=== PATIENT | female | born 1980 | race Caucasian/White ===

== ENCOUNTER 2016-08-18 17:04 | Emergency (ER) | payer MEDICAID, OTHER ==
[~2016-08-18] VITALS: Ht 157.5 cm; Wt 95.4 kg
[2016-08-18 17:07] VITALS: Ht 157.5 cm; Wt 95.4 kg
--- NOTE | 2016-08-18 18:03 | RADRPT ---
PROCEDURE: OBSTETRICAL ULTRASOUND WITH ENDOVAGINAL IMAGES CLINICAL INDICATION: Vaginal Bleed () TECHNIQUE: Multiple sonographic images of the pelvis were obtained utilizing a transabdominal and endovaginal technique. The images were reviewed on a PACS workstation. COMPARISON: None. LMP: 06/01/2016 FINDINGS: The uterus measures 11.3 x 6.0 x 6.5 cm. There is thickening of the endometrium to 12 mm without evidence of an intrauterine or foc al vascularity to suggest retained products of conception. The right ovary measures 2.6 x 1.2 x 2.3 cm. The left ovary measures 3.0 x 2.0 x 2.3 cm. There is no rmal vascular flow in both ovaries. A poorly circumscribed isoechoic lesion with prominent peripher al vascular flow and some internal vascular flow is noted in the left ovary measuring up to 1.4 cm w hich is nonspecific. No significant pelvic free fluid is identified. IMPRESSION: Thickening of the endometrium to 12 mm without evidence of an intrauterine or retained pro ducts of conception. Moreover, there is a poorly circumscribed cystic lesion with peripheral and in ternal vascular flow in the left ovary measuring up to 1.4 cm which is suspicious for an ectopic pre gnancy or, less likely, a hemorrhagic/corpus luteal cyst. Alternatively, findings may be due to an e pete intrauterine . Short-term follow-up ultrasound and serial Beta HCG measurements are r ecommended for further evaluation. These findings were discussed with Dr. SHANNAN Morataya over the phone on 08/18/2016 at 6:01 PM . RPTAT: EE Jw [facility] Physician Date Time Electronically viewed and signed by Jw [facility] Physician on 08/18/2016 18:03 /
[2016-08-18 18:14] LABS: ADD SCAN DIFF NO
[2016-08-18 18:19] LABS: ADD UMIC YES; URINE BILIRUBIN (Dip) NEGATIVE (NEGATIVE); URINE BLOOD (Dip) 3+ (NEGATIVE); URINE COLOR LT. RED (YELLOW); URINE GLUCOSE (Dip) NEGATIVE (NEGATIVE); URINE KETONES (Dip) NEGATIVE (NEGATIVE); URINE LEUKOCYTE ESTERASE (Dip) NEGATIVE (NEGATIVE); URINE NITRITE (Dip) NEGATIVE (NEGATIVE); URINE TOTAL PROTEIN (Dip) TRACE (NEGATIVE); URINE UROBILINOGEN (Dip) 0.2 E.U./dL (0.1-1.0)
[2016-08-18 18:21] LABS: BASOPHIL # 0.1 10^3/ul (0.0-0.1); BASOPHILS % 0.7 % (0.0-2.0); EOSINOPHILS # 0.2 10^3/ul (0.0-0.5); EOSINOPHILS % 1.4 % (0.0-7.0); HEMATOCRIT 40.9 % (37.0-47.0); HEMOGLOBIN 13.6 g/dl (12.0-16.0); LYMPHOCYTES # 3.1 10^3/ul (0.8-2.9); LYMPHOCYTES % 25.2 % (15.0-51.0); MEAN CORPUSCULAR HEMOGLOBIN 30.7 pg (29.0-33.0); MEAN CORPUSCULAR HGB CONC 33.3 g/dl (32.0-37.0); MEAN CORPUSCULAR VOLUME 92.3 fl (82.0-101.0); MONOCYTE # 0.6 10^3/ul (0.3-0.9); MONOCYTES % 4.8 % (0.0-11.0); NEUTROPHIL # 8.2 10^3/ul (1.6-7.5); NEUTROPHILS % 67.6 % (39.0-77.0); PLATELET COUNT 307 10^3/UL (140-415); RED BLOOD COUNT 4.43 10^6/ul (4.20-5.40); RED CELL DISTRIBUTION WIDTH 12.9 % (11.5-14.5); WHITE BLOOD COUNT 12.2 10^3/ul (4.8-10.8)
[2016-08-18 18:45] LABS: BACTERIA,URINE MODERATE; URINE RBCS >200 /HPF (0)
[2016-08-18] MEDS ORDERED: ACET500C5 PO (19:08)
--- NOTE | 2016-08-18 19:18 | ERD ---
ER Documentation Chief Complaint Date/Time DATE: 08/18/16 TIME: 19:10 Chief Complaint from clinic, 10 weeks preg,no heart beats, no bleeding HPI This 35-year-old female is referred by OB for some vaginal bleeding over the last 3 days. Skin worse today. She has minimal suprapubic cramping. She denies fevers, vomiting, shortness breath or chest pain. She is a G3 para 1 approximately 10 weeks by dates. ROS All systems reviewed and are negative except as per history of present illness. Medications Home Meds Active Scripts Acetaminophen* (Tylophen*) 500 Mg Capsule, 1 CAP PO Q6H Y for PAIN AND OR ELEVATED TEMP, #15 CAP Prov:DANIKA CAMPBELL MD 08/18/16 PMhx/Soc Medical and Surgical Hx: pt denies Medical Hx, pt denies Surgical Hx Physical Exam Vitals Vital Signs Date Time Temp Pulse Resp B/P Pulse Ox O2 Delivery O2 Flow Rate FiO2 08/18/16 17:07 98.1 99 18 158/90 99 Physical Exam Const: [] Alert, not ill-appearing, obese per Head: Atraumatic Eyes: Normal Conjunctiva ENT: Normal External Ears, Nose and Mouth. Neck: Full range of motion..~ No meningismus. Resp: Clear to auscultation bilaterally Cardio: Regular rate and rhythm, no murmurs Abd: Soft, minimal suprapubic tenderness. non distended. Normal bowel sounds Skin: No petechiae or rashes Back: No midline or flank tenderness Ext: No cyanosis, or edema Neur: Awake and alert Psych: Normal Mood and Affect Result Diagram: 08/18/16 1802 Results 24 hrs Laboratory Tests Test 08/18/16 18:02 White Blood Count 12.210^3/ul Red Blood Count 4.4310^6/ul Hemoglobin 13.6g/dl Hematocrit 40.9% Mean Corpuscular Volume 92.3fl Mean Corpuscular Hemoglobin 30.7pg Mean Corpuscular Hemoglobin Concent 33.3g/dl Red Cell Distribution Width 12.9% Platelet Count 08089^3/UL Mean Platelet Volume 10.0fl Neutrophils % 67.6% Lymphocytes % 25.2% Monocytes % 4.8% Eosinophils % 1.4% Basophils % 0.7% Nucleated Red Blood Cells % 0.0/100WBC Neutrophils # 8.210^3/ul Lymphocytes # 3.110^3/ul Monocytes # 0.610^3/ul Eosinophils # 0.210^3/ul Basophils # 0.110^3/ul Nucleated Red Blood Cells # 0.010^3/ul Urine Color LT. RED Urine Clarity TURBID Urine pH 5.5 Urine Specific Gilbert 1.010 Urine Ketones NEGATIVE Urine Nitrite NEGATIVE Urine Bilirubin NEGATIVE Urine Urobilinogen 0.2 E.U./dL Urine Leukocyte Esterase NEGATIVE Urine Microscopic RBC >200/HPF Urine Microscopic WBC 5-10/HPF Urine Epithelial Cells MODERATE Urine Bacteria MODERATE Urine Hemoglobin 3+ Urine Glucose NEGATIVE% Urine Total Protein TRACE Beta HCG, Quantitative 4277.3mIU/ml Procedures/MDM Patient is Rh+ quantitative hCG is 4277. CBC shows no acute abnormalities in WBC is 12.2. Pelvic ultrasound shows thickening of the endometrium to 12 mm without evidence of intrauterine approximately conception. There is a notable poorly circumscribed cystic lesion with possible internal flow in the left ovary up to 1.4 cm. Differential includes ectopic , hemorrhagic or corpus luteal cysts. Patient presents with vaginal bleeding of early of uncertain etiology for last 2 days. Differential includes incomplete or complete , ectopic and less likely normal early . Patient does give a history that she had an ultrasound in the clinic prior and she was given a picture of the baby. This suggests that there may have been intrauterine prior but I have no access to this information and follow-up will remain the same as ectopic cannot be exclusively ruled out. Patient will be discharged home within instructions to specifically recheck in 2 days or 48 hours for recheck of blood work and ultrasound. Patient should otherwise return for fevers, vomiting, new worsening symptoms. Signs and symptoms do not suggest appendicitis, acute abdomen or additional causes of patient presenting complaints. Departure Diagnosis: Primary Impression: Vaginal bleeding before 22 weeks gestation Condition: Stable Patient Instructions: Vaginal Bleed in Additional Instructions: es importante para cheque cristobal y ultrsonido otro vez en 2 perry ( 48 horas). es posiblemente ectopico o aborto. DANIKA CAMPBELL MD August 18, 2016 19:18
[2016-08-18 19:27] VITALS: BP 144/88; PULSE 91; RESP 20; TEMP 98.4
== END 2016-08-18 19:30 | disposition home or self-care (01) ==
LOC: FTE 17:04
DX: O20.9 Hemorrhage in early pregnancy, unspecified (principal); Z3A.10 10 weeks gestation of pregnancy
CPT/HCPCS: 36415; 76801; 76817; 81001; 84702; 85025; 86900; 86901; Z7502; 81003

== ENCOUNTER 2018-01-02 22:53 | Emergency (ER) | END 2018-01-03 01:59 | disposition home or self-care (01) ==